=== PATIENT | male | born 1985 | race Caucasian/White ===

== ENCOUNTER 2016-08-18 02:49 | Emergency (ER) | payer OTHER ==
[~2016-08-18] VITALS: Ht 182.9 cm; Wt 95.3 kg
--- NOTE | 2016-08-18 03:24 | ED GI/GU/ABDOMINAL COMPLAINT ---
History of Present Illness General Chief Complaint: Abdominal Pain/Flank Pain Stated Complaint: "IT'S MY GALLBLADDER" Source: patient Exam Limitations: no limitations Vital Signs & Intake/Output Vital Signs & Intake/Output Vital Signs Date Time Temp Pulse Resp B/P Pulse O2 O2 Flow FiO2 Ox Delivery Rate 08/18 0422 98.5 70 18 144/69 98 08/18 0254 97.0 75 18 157/87 99 Allergies Coded Allergies: No Known Allergies (08/18/16) Reconcile Medications Ondansetron (Zofran Odt) 4 MG TAB.RAPDIS 1 TAB PO Q6 PRN NAUSEA Triage Note: PT C/O SUDDEN ONSET OF RUQ ABDOMINAL PAIN. PT STATES "MY GALLBLADDER IS HURTING" PT REPORTS INITIAL PAIN /10. REPORTS TAKIN A PERCOCET AND PAIN DECREASING TO 4/10. PT DENIES N/V/D, FEVER AND CHILLS Triage Nurses Notes Reviewed? yes Onset: Abrupt Duration: SEVERAL HOURS Timing: single episode today Quality/Severity: mild, moderate Location: right upper quadrant Radiation: back Activities at Onset: sleep, ATE AT 7 PM Prior Abdominal Problems: similar symptoms No Modifying Factors: none Associated Symptoms: abdominal pain, nausea/vomiting HPI: This a 30-year-old male with history of known biliary colic presents to the ER with chief complaint of right upper quadrant abdominal pain that woke him up at 140 from sleep. He dinner around 7:00 and had a raspberry Antonella's retort after dinner. He states he has a history of similar symptoms which she knew was his gallbladder. Positive nausea but no vomiting. No fever or chills. No diarrhea. Pain got better after taking an Percocet and states that it is much better at this time. Mild nausea still. He states that when he has gallbladder problems he was seen at that time had no insurance and therefore followed up with a surgeon to have cholecystectomy. Time he is change in his diet and in general doesn't have any pain after eating until tonight. Past History Travel History Traveled to [place] past 21 day No Medical History Any Pertinent Medical History? see below for history Neurological: NONE EENT: NONE Cardiovascular: NONE Respiratory: NONE Gastrointestinal: NONE Hepatic: NONE Renal: NONE Psychiatric: NONE Endocrine: NONE Surgical History Surgical History: none Psychosocial History What is your primary language Kazakh Tobacco Use: Never used Family History Hx Contributory? No Review of Systems Review of Systems Constitutional: Denies: chills, fever. EENTM: Reports: no symptoms. Respiratory: Denies: cough, short of breath. Cardiovascular: Denies: chest pain, edema. GI: Reports: abdominal pain, nausea. Denies: vomiting. Genitourinary: Reports: no symptoms. Musculoskeletal: Reports: back pain. Skin: Reports: no symptoms. Neurological/Psychological: Reports: no symptoms. Hematologic/Endocrine: Denies: bruising, bleeding, polyuria, polydipsia. Immunologic/Allergic: Denies: splenectomy. All Other Systems: Reviewed and Negative Physical Exam Physical Exam General Appearance: well developed/nourished, alert, awake, mild distress Head: atraumatic, normal appearance Eyes: Bilateral: EOMI. Ears, Nose, Throat, Mouth: hearing grossly normal, moist mucous membrane Neck: normal inspection, supple, full range of motion Respiratory: normal breath sounds, chest non-tender, no respiratory distress Cardiovascular: regular rate/rhythm Peripheral Pulses: 2+ radial (R), 2+ radial (L) Gastrointestinal: normal bowel sounds, soft, tenderness (RUQ), NEGATIVE DALE'S Back: normal inspection Extremities: normal range of motion Neurologic/Psych: no motor/sensory deficits, awake, alert, normal gait Skin: intact, normal color, warm/dry Core Measures ACS in differential dx? No Severe Sepsis Present: No Septic Shock Present: No Progress Differential Diagnosis: biliary colic, cholecystitis, GERD, pancreatitis, peptic ulcer disease Plan of Care: Orders Procedure Date/time Status LIPASE 08/18 0323 Complete ETHANOL 08/18 0323 Complete COMPREHENSIVE METABOLIC PANEL 08/18 0323 Complete CBC WITHOUT DIFFERENTIAL 08/18 322 Complete AMYLASE 08/18 0323 Complete Laboratory Tests 08/18/16 0324: Anion Gap 17 H, Estimated GFR > 60, BUN/Creatinine Ratio 20.0, Glucose 95, Calcium 9.8, Total Bilirubin 1.1, AST 17, ALT 33, Alkaline Phosphatase 53, Total Protein 8.1, Albumin 4.9, Globulin 3.2, Albumin/Globulin Ratio 1.5, Amylase 60, Lipase 117, CBC w Diff NO MAN DIFF REQ, RBC 5.66, MCV 86.2, MCH 29.0, RDW 13.5, MPV 8.7, Gran % 42.5, Lymphocytes % 47.9, Monocytes % 6.8, Eosinophils % 2.4, Basophils % 0.4, Absolute Granulocytes 2.8, Absolute Lymphocytes 3.1, Absolute Monocytes 0.4, Absolute Eosinophils 0.2, Absolute Basophils 0, PUBS MCHC 33.6, Serum Alcohol < 10.0 08/18/16 0323: Urine Color Cancelled, Urine Clarity Cancelled, Urine pH Cancelled, Ur Specific [place] Cancelled, Urine Protein Cancelled, Urine Ketones Cancelled, Urine Nitrite Cancelled, Urine Bilirubin Cancelled, Urine Urobilinogen Cancelled, Ur Leukocyte Esterase Cancelled, Ur Microscopic Cancelled, Urine Hemoglobin Cancelled, Urine Glucose Cancelled PATIENT IMRPOVED AFTER ZOFRAN. REFUSED TORADOL. LABS WNL. WILL FOLLOW UP WITH OUTPATIENT ULTRASOUND AND WITH SURGICAL REFERRAL. (VICTORINO CERRATO,[place]) Initial ED EKG: none Departure Departure Time of Disposition: 403 Disposition: HOME OR SELF CARE Condition: Stable Clinical Impression Primary Impression: Biliary colic Referrals: VALERIE CERRATO,CLAUDINE UNDERWOOD MD,DENISSE Buenrostro Additional Instructions: Please follow up with outpatient ultrasound. Take Zofran as needed for nausea. Take Tylenol or Motrin as needed for pain. Please follow up with a surgical referral listed. Return to the ER for any changing or worsening symptoms. Departure Forms: Customer Survey General Discharge Information Prescriptions: Current Visit Scripts Ondansetron (Zofran Odt) 1 TAB PO Q6 PRN NAUSEA #10 TAB
[2016-08-18 03:31] LABS: ABSOLUTE BASOPHIL COUNT 0 /CUMM (0.0-0.2); ABSOLUTE EOSINOPHIL COUNT 0.2 /CUMM (0.0-0.7); ABSOLUTE GRANULOCYTE CT 2.8 /CUMM (1.4-6.5); ABSOLUTE LYMPH COUNT 3.1 /CUMM (1.2-3.4); ABSOLUTE MONOCYTE COUNT 0.4 /CUMM (0.10-0.60); BASOPHIL % 0.4 % (0.0-2.0); EOSINOPHIL % 2.4 % (0-5); GRANULOCYTE % 42.5 % (42.2-75.2); HEMATOCRIT 48.8 % (42-52); MEAN CORPUSCULAR HGB CONC 33.6 G/DL (33.0-37.0); MEAN CORPUSCULAR VOLUME 86.2 FL (80.0-94.0); MEAN PLATELET VOLUME 8.7 FL (7.4-10.4); PLATELET COUNT 228 /CUMM (130-400); RBC DISTRIBUTION WIDTH 13.5 % (11.5-14.5); RED BLOOD CELL CT 5.66 /CUMM (4.70-6.10); WHITE BLOOD CELL COUNT 6.5 /CUMM (4.8-10.8)
[2016-08-18] MEDS ORDERED: ZOFRAN ODT4 M1 PO (04:05)
[2016-08-18 04:22] VITALS: BP 144/69
== END 2016-08-18 04:23 ==
LOC: ERH 02:49
PROVIDERS: Emergency Medicine
DX: K80.50 Calculus of bile duct without cholangitis or cholecystitis without obstruction (principal)
CPT/HCPCS: G0480; J1885; J3101

== ENCOUNTER 2016-08-23 07:01 | Observation (INO) | payer OTHER ==
[~2016-08-23] VITALS: Ht 182.9 cm; Wt 90.7 kg
[~2016-08-23 07:01] MED LIST: ZOFRAN ODT4 M1 PO
--- NOTE | 2016-08-23 07:06 | NUR ---
PT STTAES THAT HE WAS SEEN FRIDAY PM FOR RUQ PAIN THAT WRAPS INTO HIS BACK, STATES THATHE HAD OUT PT US YESTERDAY AND WAS GIVEN NUMBERS OF DRS TO FOLLOW UP WITH, PT HAS NOT CALLED YEST AND STATES THAT SINCE 429 THIS AM PAIN HAS BEEN 10/10, POSITIVE NAUSEA.
--- NOTE | 2016-08-23 07:21 | ED GI/GU/ABDOMINAL COMPLAINT ---
History of Present Illness General Chief Complaint: Abdominal Pain/Flank Pain Stated Complaint: ? GALLBLADDER,ABD PAIN HX OF SAME Source: patient, old records Exam Limitations: no limitations Vital Signs & Intake/Output Vital Signs & Intake/Output Vital Signs Date Time Temp Pulse Resp B/P B/P Pulse O2 O2 Flow FiO2 Mean Ox Delivery Rate 08/23 0704 97.2 60 18 138/88 99 Room Air Allergies Coded Allergies: No Known Allergies (08/18/16) Reconcile Medications Docusate Sodium 100 MG CAPSULE 100 MG PO BID PRN CONSTIPATION STOOL SOFTENER AVAILABLE OVER THE COUNTER Oxycodone HCl/Acetaminophen (Percocet 5-325 MG Tablet) 5 MG-325 MG TABLET 1-2 TAB PO Q4-6 PRN PRN PAIN CONTROL TAKE DIRECTED FOR PAIN CONTROL. DO NOT COMBINE WITH TYLENOL. Triage Note: PT STTAES THAT HE WAS SEEN FRIDAY PM FOR RUQ PAIN THAT WRAPS INTO HIS BACK, STATES THATHE HAD OUT PT US YESTERDAY AND WAS GIVEN NUMBERS OF DRS TO FOLLOW UP WITH, PT HAS NOT CALLED YEST AND STATES THAT SINCE 429 THIS AM PAIN HAS BEEN 10/10, POSITIVE NAUSEA. Triage Nurses Notes Reviewed? yes Onset: Abrupt Duration: hour(s): (several) Timing: multiple episodes today Quality/Severity: cramping, moderate, sharpness, vomiting Location: right upper quadrant Radiation: back Activities at Onset: sleep No Modifying Factors: none Associated Symptoms: abdominal pain, nausea/vomiting HPI: 30 year old male presents with severe RUQ pain radiating to the [facility] which woke the patient up from sleep several hours ago. He last ate barbecue chicken and beans at 7 pm yesterday. He was seen here on the weekend and diagnosed with cholelithiasis. History of same. This week he had an outpatient ultrasound which confirmed the diagnosis. He was going to follow up with surgery outpatient but came here with worsening pain today. Multiple episodes of nausea and vomiting. Past History Travel History Traveled to [place] past 21 day No Medical History Any Pertinent Medical History? 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 No Review of Systems Review of Systems Constitutional: Denies: chills, fever. EENTM: Reports: no symptoms. Respiratory: Denies: cough, short of breath. Cardiovascular: Denies: chest pain, orthopena. GI: Reports: abdominal pain, nausea, vomiting. Genitourinary: Denies: discharge, dysuria. Musculoskeletal: Reports: no symptoms. Skin: Reports: no symptoms. Neurological/Psychological: Reports: no symptoms. Hematologic/Endocrine: Denies: bruising, bleeding, polyuria, polydipsia. Immunologic/Allergic: Denies: splenectomy. All Other Systems: Reviewed and Negative Physical Exam Physical Exam General Appearance: well developed/nourished, alert, awake Head: atraumatic, normal appearance Eyes: Bilateral: normal appearance, PERRL, EOMI. Ears, Nose, Throat, Mouth: hearing grossly normal, moist mucous membrane Neck: normal inspection, supple, full range of motion Respiratory: normal breath sounds, chest non-tender, no respiratory distress Cardiovascular: regular rate/rhythm Gastrointestinal: soft, tenderness (RUQ), POSITIVE DALE'S EXAM Extremities: normal range of motion Neurologic/Psych: no motor/sensory deficits, awake, alert, oriented x 3 Skin: intact Core Measures ACS in differential dx? No Severe Sepsis Present: No Septic Shock Present: No Progress Differential Diagnosis: biliary colic, cholecystitis Plan of Care: Orders Procedure Date/time Status Nothing by Mouth 08/[address] in observation 08/23 0939 Active URINALYSIS 08/23 0836 Complete Add-on Test (ER Only) 08/23 0830 Active TYPE & SCREEN (NOT X-MATCH) 08/23 0744 Active PARTIAL THROMBOPLASTIN TIME 08/23 0733 Complete PROTHROMBIN TIME 08/23 0733 Complete LIPASE 08/23 0733 Complete COMPREHENSIVE METABOLIC PANEL 08/23 0733 Complete CBC WITHOUT DIFFERENTIAL 08/23 0733 Complete Current Medications Sig/Cristian Start time Last Medication Dose Stop Time Status Admin Sodium Chloride 1,000 ML ONCE ONE 08/23 0830 AC 08/23 (Normal Saline 0.9%) 08/23 1629 0840 Laboratory Tests 08/23/16 0838: Urinalysis HEAVY H, Urine Color YEL, Urine Clarity HAZY H, Urine pH 6.5, Ur Specific [place] 1.025, Urine Protein TRACE H, Urine Ketones 40 H, Urine Nitrite NEG, Urine Bilirubin NEG, Urine Urobilinogen 0.2, Ur Leukocyte Esterase NEG, Ur Microscopic SEDIMENT EXAMINED, Urine RBC RARE, Urine WBC RARE, Ur Epithelial Cells FEW, Urine Bacteria FEW H, Urine Mucus FEW, Urine Hemoglobin NEG, Urine Glucose NEG 08/23/16 0744: Anion Gap 17 H, Estimated GFR > 60, BUN/Creatinine Ratio 21.1, Glucose 116 H, Calcium 10.0, Total Bilirubin 1.4 H, AST 16 L, ALT 31, Alkaline Phosphatase 56 , Total Protein 7.9, Albumin 4.6, Globulin 3.3, Albumin/Globulin Ratio 1.4, Lipase 92, PT 11.3, INR 1.08, APTT 34, CBC w Diff NO MAN DIFF REQ, RBC 5.73, MCV 85.7, MCH 28.9, RDW 13.4, MPV 8.9, Gran % 52.7, Lymphocytes % 37.6, Monocytes % 6.6, Eosinophils % 2.1, Basophils % 1.0, Absolute Granulocytes 3.1, Absolute Lymphocytes 2.2, Absolute Monocytes 0.4, Absolute Eosinophils 0.1, Absolute Basophils 0.1, PUBS MCHC 33.7 abdominal exam consistent with acute cholecystitis. D/W dr. Jackson. Surgical PA paged. Patient seen by Jose. Patient to be placed in surgical observation. 8:22 AM SURGERY PAGED. (VICTORINO CERRATO,AL[place]ER) Initial ED EKG: none Departure Departure Time of Disposition: 937 Disposition: STILL A PATIENT Condition: Stable Clinical Impression Primary Impression: Cholelithiasis Referrals: PATIENT HAS NO PRIMARY CARE DR (PCP/Family) Departure Forms: Customer Survey General Discharge Information Prescriptions: Current Visit Scripts Docusate Sodium 100 MG PO BID PRN CONSTIPATION 10 Days STOOL SOFTENER AVAILABLE OVER THE COUNTER Oxycodone HCl/Acetaminophen (Percocet 5-325 MG Tablet) 1-2 TAB PO Q4-6 PRN PRN PAIN CONTROL #30 TAB TAKE DIRECTED FOR PAIN CONTROL. DO NOT COMBINE WITH TYLENOL. Admission Note Documentation of Exam: Documentation of any treatments & extenuating circumstances including Concerns Regarding Discharge (functional status, medication knowledge or non-compliance, living conditions, etc.) that warrant an admission rather than observation: Observation Note Spoke With: KJ CERRATO,DENISSE Buenrostro Physician Advisor Notified: BRISEIDA FRANCISCO DO Place Patient In: Non-ED OBS Care Area Rationale for Observation: My rational for observation is as follows [IVF, NPO, CHOLECYSTECTOMY]. Critical Care Note Critical Care Note Critical Care Time: 30-74 min
--- NOTE | 2016-08-23 07:21 | NUR ---
PT AMB TO ROOM 1, AWAITING EVAL.
--- NOTE | 2016-08-23 07:28 | NUR ---
DR GLEASON IN FOR GABIAL
--- NOTE | 2016-08-23 07:49 | NUR ---
BLOOD DRAWN AND SENT TO THE LAB (SST,LAV,ANTONY,BLUE,PINK)
[2016-08-23 07:58] LABS: ABSOLUTE BASOPHIL COUNT 0.1 /CUMM (0.0-0.2); ABSOLUTE EOSINOPHIL COUNT 0.1 /CUMM (0.0-0.7); ABSOLUTE GRANULOCYTE CT 3.1 /CUMM (1.4-6.5); ABSOLUTE LYMPH COUNT 2.2 /CUMM (1.2-3.4); ABSOLUTE MONOCYTE COUNT 0.4 /CUMM (0.10-0.60); EOSINOPHIL % 2.1 % (0-5); GRANULOCYTE % 52.7 % (42.2-75.2); HEMATOCRIT 49.1 % (42-52); MEAN CORPUSCULAR HGB 28.9 PG (27.0-31.0); MEAN CORPUSCULAR HGB CONC 33.7 G/DL (33.0-37.0); MEAN CORPUSCULAR VOLUME 85.7 FL (80.0-94.0); MEAN PLATELET VOLUME 8.9 FL (7.4-10.4); PLATELET COUNT 188 /CUMM (130-400); RBC DISTRIBUTION WIDTH 13.4 % (11.5-14.5); RED BLOOD CELL CT 5.73 /CUMM (4.70-6.10); WHITE BLOOD CELL COUNT 5.8 /CUMM (4.8-10.8)
[2016-08-23 08:23] LABS: PT 11.3 SEC (9.4-12.5); PTT 34 SEC (25-37)
--- NOTE | 2016-08-23 08:40 | NUR ---
URINE TRIO SENT TO THE LAB
--- NOTE | 2016-08-23 08:54 | NUR ---
TYPE AND SCREEN HEMOLYZED PER BLOOD BANK. TYPE AND SCREEN RE-SENT. SURGICAL PA AT BEDSIDE.
--- NOTE | 2016-08-23 10:07 | NUR ---
DR UNDERWOOD AT BEDSIDE.
--- NOTE | 2016-08-23 10:18 | Admission Core Measures ---
Admission Lab Results I reviewed the following labs: Laboratory Tests 08/23 08/23 0838 0703 Chemistry Sodium (137 - 145 mmol/L) 144 Potassium (3.5 - 5.1 mmol/L) 3.8 Chloride (98 - 107 mmol/L) 100 Carbon Dioxide (22 - 30 mmol/L) 26 Anion Gap (5 - 16) 17 H BUN (9 - 20 mg/dL) 19 Creatinine (0.7 - 1.2 mg/dL) 0.9 Estimated GFR (>60 ml/min) > 60 BUN/Creatinine Ratio (7 - 25 %) 21.1 Glucose (65 - 99 mg/dL) 116 H Calcium (8.4 - 10.2 mg/dL) 10.0 Total Bilirubin (0.2 - 1.3 mg/dL) 1.4 H AST (17 - 59 U/L) 16 L ALT (21 - 72 U/L) 31 Alkaline Phosphatase (< 127 U/L) 56 Total Protein (6.3 - 8.2 g/dL) 7.9 Albumin (3.5 - 5.0 g/dL) 4.6 Globulin (1.9 - 4.2 gm/dL) 3.3 Albumin/Globulin Ratio (1.1 - 2.2 %) 1.4 Lipase (23 - 300 U/L) 92 Coagulation PT (9.4 - 12.5 SEC) 11.3 INR (0.90 - 1.17) 1.08 APTT (25 - 37 SEC) 34 Hematology CBC w Diff NO MAN DIFF REQ WBC (4.8 - 10.8 /CUMM) 5.8 RBC (4.70 - 6.10 /CUMM) 5.73 Hgb (14.0 - 18.0 G/DL) 16.5 Hct (42 - 52 %) 49.1 MCV (80.0 - 94.0 FL) 85.7 MCH (27.0 - 31.0 PG) 28.9 RDW (11.5 - 14.5 %) 13.4 Plt Count (130 - 400 /CUMM) 188 MPV (7.4 - 10.4 FL) 8.9 Gran % (42.2 - 75.2 %) 52.7 Lymphocytes % (20.5 - 51.1 %) 37.6 Monocytes % (1.7 - 9.3 %) 6.6 Eosinophils % (0 - 5 %) 2.1 Basophils % (0.0 - 2.0 %) 1.0 Absolute Granulocytes (1.4 - 6.5 /CUMM) 3.1 Absolute Lymphocytes (1.2 - 3.4 /CUMM) 2.2 Absolute Monocytes (0.10 - 0.60 /CUMM) 0.4 Absolute Eosinophils (0.0 - 0.7 /CUMM) 0.1 Absolute Basophils (0.0 - 0.2 /CUMM) 0.1 PUBS MCHC (33.0 - 37.0 G/DL) 33.7 Urines Urinalysis HEAVY H Urine Color (YEL,AMB,STR) YEL Urine Clarity (CLEAR) HAZY H Urine pH (5.0 - 8.0) 6.5 Ur Specific [place] (1.001 - 1.035) 1.025 Urine Protein (NEG,<30 MG/DL) TRACE H Urine Ketones (NEG) 40 H Urine Nitrite (NEG) NEG Urine Bilirubin (NEG) NEG Urine Urobilinogen (0.1 - 1.0 EU/dl) 0.2 Ur Leukocyte Esterase (NEG) NEG Ur Microscopic SEDIMENT EXAMINED Urine RBC (0 - 5 /HPF) RARE Urine WBC (0 - 2 /HPF) RARE Ur Epithelial Cells (NONE,FEW) FEW Urine Bacteria (NEG/NONE) FEW H Urine Mucus (FEW,NONE) FEW Urine Hemoglobin (NEG) NEG Urine Glucose (N MG/DL) NEG Admission Meds I reviewed the following Meds: Current Medications Sig/Cristian Start time Last Medication Dose Stop Time Status Admin Dextrose/Sodium 1,000 ML .[id number] 08/23 1015 UNVr Chloride (D5-Normal Saline) Heparin Sodium 5,000 UNIT Q8 08/23 1400 UNVr (Porcine) Ondansetron HCl 4 MG Q8P PRN 08/23 1015 UNVr (Zofran) Sodium Chloride 1,000 ML ONCE ONE 08/23 0830 AC 08/23 (Normal Saline 0.9%) 08/23 1629 0840 Acute Coronary Syndrome Inclusion Criteria ACS Diagnosis No Inpatient Core Measures LDL Reminder: If No, please order W/I first 24hr of stay Congestive Heart Failure Inclusion Criteria CHF Diagnosis No Cerebrovascular accident Inclusion Criteria CVA/TIA Diagnosis No Inpatient Core Measures Bedside Swallow Eval Reminder: If BSE failed, place ST order Antithrombotic Reminder: Order Antithrombotic Medication by end of day 2 Antithrombotic Reminder: Document Reason Antithrombotic Not ordered by end of day 2 AFIB/Flutter Reminder: If Present, add to problem list AFIB/Flutter Reminder: Order Anticoag Medication for pts with AFIB/Flutter Atherosclerosis Reminder: If Present, add to problem list LDL Reminder: If No, please order W/I first 24hr of stay PT Order Reminder: If No, please order Venous thromboembolism Inpatient Core Measures VTE Risk Factors: No Risk Factors [facility] prophylaxis d/t No contraindications No VTE Pharm Prophylaxis d/t No contraindications Inclusion Criteria - Per Current guidelines, there needs to be overlap - treatment for the first 5 days of Warfarin therapy. - Parenteral Anticoagulation (IV or SC) needs to be - given along with Warfarin therapy. VTE Diagnosis No VTE Type NONE VTE Confirmed by (Test) NONE Problem List As ranked by this Provider includes Assessment & Plan 1. Cholelithiasis 2. Biliary colic HOME MEDS Home Med List Ondansetron (Zofran Odt) 4 MG TAB.RAPDIS 1 TAB PO Q6 PRN NAUSEA
--- NOTE | 2016-08-23 10:28 | History & Physical Pre-Op ---
FRANKIE BONILLA 08/23/16 1018: General Information and HPI MD Statement: I have seen and personally examined SALUD VASQUEZ and documented this H&P. The patient is a 30 year old M who presented with a patient stated chief complaint of [abdominal pain]. Source of Information: patient Exam Limitations: no limitations History of Present Illness: Mr. Vasquez is a 30-year-old male with no significant past medical history presents with pain out of 10 sharp right upper quadrant abdominal pain that started after eating barbecue chicken yesterday. He was seen on Friday for similar abdominal complaints however he was discharged. This week he had a follow-up ultrasound which revealed cholelithiasis without evidence of cholecystitis. He states that he was seen at [facility] a couple of years ago with similar symptoms and was discharged and was told to follow-up for his gallbladder at that time but did not. He denies chest pain or shortness of breath at this time no recent history of fever or chills. He has had a couple episodes of vomiting since the onset of this pain. No recent history of change in bladder or bowel habits. 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 ASSISTANT/Reproductive: NONE Surgical History Pertinent Surgical History: Michele ANIAS PLACEMENT FOR SPINAL SCOLIOSIS 12 YEARS AGO Past Family/Social History Psychosocial History ETOH Use: denies use Illicit Drug Use: denies illicit drug use Exam & Diagnostic Data Last 24 Hrs of Vital Signs/I&O Vital Signs Date Time Temp Pulse Resp B/P B/P Pulse O2 O2 Flow FiO2 Mean Ox Delivery Rate 08/23 0948 98.0 63 18 109/70 97 Room Air 08/23 0704 97.2 60 18 138/88 99 Room Air Intake & Output 08/23 1600 08/23 0800 08/23 0000 Intake Total 1000 Output Total Balance 1000 Intake, IV 1000 Patient 200 lb Weight Physical Exam General Appearance Alert, Oriented X3, Mild Distress HEENT PERRLA Neck No JVD Cardiovascular Regular Rate Lungs Clear to Auscultation Abdomen Normal Bowel Sounds, RIGHT UPPER QUADRANT TENDERNESS REVEALING A [place] SIGN TO DEEP PALPATION. nO EVIDENCE OF PERITONITIS Neurological Normal Speech, Strength at 5/5 X4 Ext Extremities No Edema, Normal Pulses Last 24 Hrs of Labs/Zoran: Laboratory Tests 08/23/16 0838: Urinalysis HEAVY H, Urine Color YEL, Urine Clarity HAZY H, Urine pH 6.5, Ur Specific [place] 1.025, Urine Protein TRACE H, Urine Ketones 40 H, Urine Nitrite NEG, Urine Bilirubin NEG, Urine Urobilinogen 0.2, Ur Leukocyte Esterase NEG, Ur Microscopic SEDIMENT EXAMINED, Urine RBC RARE, Urine WBC RARE, Ur Epithelial Cells FEW, Urine Bacteria FEW H, Urine Mucus FEW, Urine Hemoglobin NEG, Urine Glucose NEG 08/23/16 0744: Anion Gap 17 H, Estimated GFR > 60, BUN/Creatinine Ratio 21.1, Glucose 116 H, Calcium 10.0, Total Bilirubin 1.4 H, AST 16 L, ALT 31, Alkaline Phosphatase 56 , Total Protein 7.9, Albumin 4.6, Globulin 3.3, Albumin/Globulin Ratio 1.4, Lipase 92, PT 11.3, INR 1.08, APTT 34, CBC w Diff NO MAN DIFF REQ, RBC 5.73, MCV 85.7, MCH 28.9, RDW 13.4, MPV 8.9, Gran % 52.7, Lymphocytes % 37.6, Monocytes % 6.6, Eosinophils % 2.1, Basophils % 1.0, Absolute Granulocytes 3.1, Absolute Lymphocytes 2.2, Absolute Monocytes 0.4, Absolute Eosinophils 0.1, Absolute Basophils 0.1, PUBS MCHC 33.7 Diagnostic Data Other Results SERVICE DATE: 08/21/16 EXAM TYPE: US - US-LIMITED ABDOMEN EXAMINATION: ABDOMINAL ULTRASOUND LIMITED CLINICAL INFORMATION: Right upper quadrant pain. COMPARISON: None. TECHNIQUE: Real-time imaging of the right upper quadrant abdominal viscera. FINDINGS: PANCREAS: The visualized pancreatic head and body are normal in appearance. The remainder of the pancreas is obscured from visualization by the overlying bowel gas. LIVER: The liver is of normal size and diffuse increased echogenicity without focal lesions nor intrahepatic biliary ductal dilation. GALLBLADDER: There are calculi within the gallbladder lumen. There is no wall thickening or pericholecystic fluid. COMMON BILE DUCT: Normal in caliber measuring 0.4 cm in diameter. RIGHT KIDNEY: Normal. No hydronephrosis. No renal calculi or focal parenchymal lesions. The kidney measures 10.4 cm in maximum dimension. FREE FLUID: None. IMPRESSION: Liver of diffuse increased echogenicity without focal lesions. The appearance is nonspecific, but consistent with fatty infiltration. Cholelithiasis without evidence of cholecystitis. DICTATED BY: SALUD ZULETA MD DATE/TIME DICTATED:08/21/161037 BELT LOOP MACHINE OPERATOR:ADAN DATE/TIME TRANSCRIBED:08/21/161037 Assessment/Plan Assessment/Plan: Mr. Vasquez is 30-year-old male who presents with 10 out of 10 right upper quadrant abdominal pain that started early this morning. He has a known history of biliary colic secondary to cholelithiasis. This case was discussed with Dr. Jackson and he felt as though since the patient was here with this pain it would be prudent to remove his gallbladder at this time. Plan Keep nothing by mouth now Titrate pain medication Place in observation under Dr. Jackson's care Plan for laparoscopic cholecystectomy this afternoon As Ranked By This Provider Problem List: 1. Biliary colic 2. Cholelithiasis DENISSE JACKSON MD 08/23/16 1034: Attending MD Review Statement Attending Statement Attending MD Statement: examined this patient, discuss w/resident/PA/VERIFICATION LEAD, reviewed images Attending Assessment/Plan: 30 yo otherwise healthy male presents with recurrent biliary colic symptoms prompting two visits to ER in one week. Recommend laparoscopic cholecystectomy today when OR available. He is informed of the risks of surgery including but not limited to bleeding, infection, conversion to open, post cholecystectomy diarrhea and bile duct injury. He ageees.
--- NOTE | 2016-08-23 10:35 | NUR ---
BED ASSIGNMENT [id number]
--- NOTE | 2016-08-23 10:58 | NUR ---
ATTEMPTED TO CALL REPORT, NURSE WILL CALL BACK.
--- NOTE | 2016-08-23 11:13 | NUR ---
REPORT TO CHERI MARTINEZ ON 2NA. TRANSPORT CALLED.
--- NOTE | 2016-08-23 11:27 | NUR ---
PT TO FLOOR VIA STRETCHER. ALL PAPERWORK AND BELONGINGS SENT WITH PT. CLINICAL STATUS UNCHANGED.
--- NOTE | 2016-08-23 11:30 | NUR ---
PT ADMITTED FROM ER WITH DX: CHOLECYSTITIS, PT AXO, C/O ABD PAIN 05/14, PT NPO FOR OR LATER TODAY, IVF INFUSING WITHOUT DIFFICULTY, PT ORIENTED TO ROOM, CALL LIGHT, AND PLAN OF CARE, PT VERBALIZES UNDERSTANDING
[2016-08-23 11:39] VITALS: BP 120/80
[2016-08-23 14:06] VITALS: BP 120/80
--- NOTE | 2016-08-23 16:20 | NUR ---
PT DOWN TO OR AT THIS TIME VIA STRETCHER. JEWERLY REMOVED, PT VOIDED INKER MACHINE TO OR. VSS. ALERT/ORIENTED X3. DENIES ANY PAIN. WILL CONTINUE TO MONITOR.
[2016-08-23] MEDS ORDERED: PERCOCET 5-3251 EACH PO (16:34)
[2016-08-23] MEDS ORDERED: DOCUSATE SODIU100 M3 PO (16:34)
--- NOTE | 2016-08-23 16:39 | Patient Discharge Instructions ---
Discharge Instructions General Discharge Information You were seen/treated for: GALLSTONES, BILIARY COLIC You had these procedures: LAPAROSCOPIC CHOLECYSTECTOMY (08/23/16) Watch for these problems: FEVER>101.3, INCREASED PAIN, REDNESS/SWELLING/DRAINAGE No bath, but you may shower: Yes Other wound care: LEAVE WHITE STERI STRIPS IN PLACE. KEEP INCISIONS CLEAN & DRY. Diet Continue normal diet: No Recommended Diet: Low Fat Activity Full Activity/No Limits: No Activity Self Limited: Yes Pounds, do NOT lift more than: 10 Other activity limits: NO HEAVY LIFTING. NO STRENUOUS ACTIVITY. Acute Coronary Syndrome Inclusion Criteria At DC or during hospital stay patient has or had the following: ACS DIAGNOSIS No Discharge Core Measures Meds if any: Prescribed or Continued at Discharge Meds if any: NOT Prescribed or Continued at Discharge Congestive Heart Failure Inclusion Criteria At DC or during hospital stay patient has or had the following: CHF DIAGNOSIS No Discharge Core Measures Meds if any: Prescribed or Continued at Discharge Meds if any: NOT Prescribed or Continued at Discharge Cerebrovascular accident Inclusion Criteria At DC or during hospital stay patient has or had the following: CVA/TIA Diagnosis No Discharge Core Measures Meds if any: Prescribed or Continued at Discharge Meds if any: NOT Prescribed or Continued at Discharge Venous thromboembolism Inclusion Criteria VTE Diagnosis No VTE Type NONE VTE Confirmed by (Test) NONE Discharge Core Measures - Per Current guidelines, there needs to be overlap - treatment for the first 5 days of Warfarin therapy. - If discharged on Warfarin prior to 5 days of - overlap therapy, the patient will need to be - assessed for post discharge needs including - *Post discharge parental anticoagulation - *Warfarin and/or parental anticoagulation education - *Follow up date to check INR post discharge At least 5 days overlap therapy as Inpatient No Meds if any: Prescribed or Continued at Discharge Note: Overlap Therapy is Warfarin and Anticoagulant Meds if any: NOT Prescribed or Continued at Discharge
--- NOTE | 2016-08-23 17:57 | Operative Report ---
Operative/Inv Procedure Report Surgery Date: 08/23/16 Name of Procedure: Laparoscopic cholecystectomy Pre-Operative Diagnosis: Acute cholecystitis Post-Operative Diagnosis: Same Estimated Blood Loss: less than 50ml Surgeon/Small Business Banking Officer: KJ CERRATO,DENISSE Buenrostro/Natalia OQUENDO Anesthesia: general endotracheal tube Drains: None Specimens: Gallbladder Operative Indication: See H&P Operative/Procedure Note Note: After informed consent patient is brought to the operating room and laid supine. General anesthesia was obtained and her abdomen was prepped and draped. The skin above the umbilicus infiltrated with local anesthesia and a curvilinear incision made sharply. We came down through the subcutaneous tissues bluntly and grasped the fascia with [place]'s. There is a tiny umbilical hernia which was dissected free however the hole was too small to place a port through it. A fasciotomy was created sharply and stay sutures placed. The peritoneum was entered sharply and a blunt Kirk port was placed. Pneumoperitoneum was achieved. 3, 5 mm ports were placed in the epigastrium and right upper quadrant after local anesthesia was instilled and under direct vision the camera. he's placed in reverse Trendelenburg and rotated towards the left. The gallbladder is identified. The dome was adherent densely to the liver.. There were dense adhesions to the dome taken down with cautery. It was grasped at the dome and retracted towards the head. Infundibulum was then grasped. Adhesions to the undersurface were taken down with blunt and cautery dissection. We dissected both sides the triangle Calot peritoneal tissue with cautery. The artery was medial and its normal anatomic position. It was cauterized medially to allow it to be mobilized away from the duct. We encountered some hemorrhage which was controlled with cautery. [place] was cleared of areolar tissue with cautery. The arteries and duct were doubly ligated with clips. Gallbladder is removed from the fossa electrocautery. Towards the dome there was difficulty in dissection due to a triangular lobe of the liver attached to the gallbladder. We dissected it free with cautery. The gallbladder was placed in Endo Catch bag and cinched up. Right upper quadrant was and suction irrigated normal saline. Hemostasis achieved with cautery. The ports were then removed and the gallbladder delivered and passed off the field. The fascia was closed with 0 Vicryl suture. Skin incisions closed with 4-0 Vicryl. Steri-Strips and sterile dressing applied. Sponge and needle counts are correct.
--- NOTE | 2016-08-23 19:30 | NUR ---
PT ARRIVED BACK TO FLOOR VIA STRETCHER FROM PACU AT 193. PT HAS 4 BANDAIDS TO ABD, NO DRAINAGE NOTED. +BS, BOXED LUNCH ORDERED FOR PT. PT C/O PAIN 11/11 AT 1999, MEDICATED WITH SCHEDULED TORADOL. PT AWARE OF PAIN MEDS AVAILABLE IF NEEDED. VSS. WILL CONTINUE TO MONITOR.
[2016-08-23 19:39] VITALS: BP 110/70
--- NOTE | 2016-08-23 21:27 | PN- General Surgery ---
Subjective Subjective: POST-OP NOTE: Reports expected incisional discomfort, which he states is nothing compared to the pain he had pre-op from his gallstones. He is tolerating sips. No nausea. Not yet out of bed. Denies dizziness. No shortness of breath. Due to void later tonight. Objective Vital Signs and I&Os Vital Signs Date Time Temp Pulse Resp B/P B/P Pulse O2 O2 Flow FiO2 Mean Ox Delivery Rate 08/23 1939 98.2 60 18 110/70 99 Room Air 08/23 1406 98.2 70 20 120/80 97 08/23 1139 98.2 70 20 120/80 97 08/23 1113 98.2 60 20 112/72 98 Room Air 08/23 0948 98.0 63 18 109/70 97 Room Air 08/23 0704 97.2 60 18 138/88 99 Room Air Intake & Output 08/23 1600 08/23 0800 08/23 0000 08/22 1600 08/22 0800 08/22 0000 Intake Total 225 1000 Output Total 250 Balance -25 1000 Intake, IV 225 1000 Intake, Oral 0 Output, Urine 250 Patient 200 lb 200 lb Weight Physical Exam: General - alert & oriented x 3. comfortable. no acute distress. Lungs - clear bilaterally. no w/r/r. Cardiac - s1s2. reg. Abdomen - soft. dressings c/d/i. expected mony-incisional tenderness. no drains. Extremities - warm bilaterally. no c/c/e. calves soft and nontender b/l. Assessment/Plan Assessment/Plan This 30 year old male is POD#0 s/p lap cholecystectomy for acute cholecystitis advance diet as tolerated pain control as ordered hep sc - dvt ppx oob/ambulation due to void later tonight d/c tomorrow if tolerating food d/w Core Measures/Miscellaneous Venous Thromboembolism VTE Risk Factors: Surgery VTE Contraindications: No Contraindications VTE Diagnosis: No VTE Type: NONE VTE Confirmed by (Test): NONE Beta Jaison Is Beta Jaison a Home Med? No Antibiotics Is Patient on Antibiotics? No
[2016-08-23 23:22] VITALS: BP 112/80
[2016-08-24 07:11] VITALS: BP 110/68
--- NOTE | 2016-08-24 11:13 | PN- General Surgery ---
See Addendum Subjective Subjective: POD #1 s/p lap sima for biliary colic. Resting comfortably in bed. Tolerating a regular diet. Voiding spontaneously. Ambulating well. Objective Vital Signs and I&Os Vital Signs Date Time Temp Pulse Resp B/P B/P Pulse O2 O2 Flow FiO2 Mean Ox Delivery Rate 08/24 0711 98.2 64 16 110/68 96 Room Air 08/23 2322 98.1 60 18 112/80 95 Room Air 08/23 1939 98.2 60 18 110/70 99 Room Air 08/23 1406 98.2 70 20 120/80 97 08/23 1139 98.2 70 20 120/80 97 08/23 1113 98.2 60 20 112/72 98 Room Air Intake & Output 08/24 1600 08/24 0800 08/24 0000 08/23 1600 08/23 0800 08/23 0000 Intake Total 900 7091 261 7287 Output Total 700 250 Balance 900 580 -25 1000 Intake, IV 800 877 750 1197 Intake, Oral 100 480 0 Output, Urine 700 250 Patient 200 lb 200 lb Weight Physical Exam: Gen: AAox3 in NAD Cor: S1+S2+ Lungs: CTA lupe Abd: soft, NT, ND, +Bs x4. Incisional bandaids C/D/I> Ext: no edema or calf tenderness to lupe lower extremities. Current Medications: Current Medications Sig/Cristian Start time Last Medication Dose Route Stop Time Status Admin Acetaminophen 650 MG Q6P PRN 08/23 1630 AC PO Acetaminophen 1,000 MG .STK-MED ONE 08/23 1622 DC IV 08/23 1623 Dextrose/Sodium 1,000 ML Q10H 08/23 1630 DC 08/24 Chloride IV 0431 Dextrose/Sodium 1,000 ML .[id number] 08/23 1015 DC 08/23 Chloride IV 1020 Docusate Sodium 100 MG BID 08/23 2200 AC 08/24 PO 0830 Fentanyl Citrate 250 MCG .STK-MED ONE 08/23 1622 DC IM 08/23 1623 Heparin Sodium 5,000 UNIT Q8 08/24 0600 AC 08/24 (Porcine) SC 0549 Heparin Sodium 5,000 UNIT Q8 08/23 1400 DC 08/23 (Porcine) SC 1510 Hydromorphone HCl 2 MG .STK-MED ONE 08/23 1842 DC IM 08/23 1843 Hydromorphone HCl 2 MG .STK-MED ONE 08/23 1828 DC IM 08/23 1829 Hydromorphone HCl 2 MG .STK-MED ONE 08/23 1622 DC IM 08/23 1623 Ketorolac 30 MG Q6H 08/24 0200 AC 08/24 Tromethamine IV 0831 Ketorolac 30 MG Q6 08/23 1800 DC 08/23 Tromethamine IV 1951 Meperidine HCl 50 MG .STK-MED ONE 08/23 1824 DC IM 08/23 1825 Midazolam HCl 2 MG .STK-MED ONE 08/23 1622 DC IM 08/23 1623 Morphine Sulfate 2 MG Q4-6 PRN PRN 08/23 1630 AC IV Ondansetron HCl 4 MG Q6P PRN 08/23 1645 AC IV Ondansetron HCl 4 MG Q8P PRN 08/23 1015 DC IV Oxycodone/ 1 TAB Q4-6 PRN PRN 08/23 1630 AC 08/24 Acetaminophen PO 0550 Oxycodone/ 2 TAB Q4-6 PRN PRN 08/23 1630 AC Acetaminophen PO Sodium Chloride 1,000 ML ONCE ONE 08/23 0830 DC 08/23 IV 08/23 1629 0840 Results Last 48 Hours of Labs: Laboratory Tests 08/23 08/23 0838 0744 Chemistry Sodium (137 - 145 mmol/L) 144 Potassium (3.5 - 5.1 mmol/L) 3.8 Chloride (98 - 107 mmol/L) 100 Carbon Dioxide (22 - 30 mmol/L) 26 Anion Gap (5 - 16) 17 H BUN (9 - 20 mg/dL) 19 Creatinine (0.7 - 1.2 mg/dL) 0.9 Estimated GFR (>60 ml/min) > 60 BUN/Creatinine Ratio (7 - 25 %) 21.1 Glucose (65 - 99 mg/dL) 116 H Calcium (8.4 - 10.2 mg/dL) 10.0 Total Bilirubin (0.2 - 1.3 mg/dL) 1.4 H AST (17 - 59 U/L) 16 L ALT (21 - 72 U/L) 31 Alkaline Phosphatase (< 127 U/L) 56 Total Protein (6.3 - 8.2 g/dL) 7.9 Albumin (3.5 - 5.0 g/dL) 4.6 Globulin (1.9 - 4.2 gm/dL) 3.3 Albumin/Globulin Ratio (1.1 - 2.2 %) 1.4 Lipase (23 - 300 U/L) 92 Coagulation PT (9.4 - 12.5 SEC) 11.3 INR (0.90 - 1.17) 1.08 APTT (25 - 37 SEC) 34 Hematology CBC w Diff NO MAN DIFF REQ WBC (4.8 - 10.8 /CUMM) 5.8 RBC (4.70 - 6.10 /CUMM) 5.73 Hgb (14.0 - 18.0 G/DL) 16.5 Hct (42 - 52 %) 49.1 MCV (80.0 - 94.0 FL) 85.7 MCH (27.0 - 31.0 PG) 28.9 RDW (11.5 - 14.5 %) 13.4 Plt Count (130 - 400 /CUMM) 188 MPV (7.4 - 10.4 FL) 8.9 Gran % (42.2 - 75.2 %) 52.7 Lymphocytes % (20.5 - 51.1 %) 37.6 Monocytes % (1.7 - 9.3 %) 6.6 Eosinophils % (0 - 5 %) 2.1 Basophils % (0.0 - 2.0 %) 1.0 Absolute Granulocytes (1.4 - 6.5 /CUMM) 3.1 Absolute Lymphocytes (1.2 - 3.4 /CUMM) 2.2 Absolute Monocytes (0.10 - 0.60 /CUMM) 0.4 Absolute Eosinophils (0.0 - 0.7 /CUMM) 0.1 Absolute Basophils (0.0 - 0.2 /CUMM) 0.1 PUBS MCHC (33.0 - 37.0 G/DL) 33.7 Urines Urinalysis HEAVY H Urine Color (YEL,AMB,STR) YEL Urine Clarity (CLEAR) HAZY H Urine pH (5.0 - 8.0) 6.5 Ur Specific [place] (1.001 - 1.035) 1.025 Urine Protein (NEG,<30 MG/DL) TRACE H Urine Ketones (NEG) 40 H Urine Nitrite (NEG) NEG Urine Bilirubin (NEG) NEG Urine Urobilinogen (0.1 - 1.0 EU/dl) 0.2 Ur Leukocyte Esterase (NEG) NEG Ur Microscopic SEDIMENT EXAMINED Urine RBC (0 - 5 /HPF) RARE Urine WBC (0 - 2 /HPF) RARE Ur Epithelial Cells (NONE,FEW) FEW Urine Bacteria (NEG/NONE) FEW H Urine Mucus (FEW,NONE) FEW Urine Hemoglobin (NEG) NEG Urine Glucose (N MG/DL) NEG Assessment/Plan Assessment/Plan A: POD #1 s/p lap sima; AVSS Plan: D/C home. Core Measures/Miscellaneous Venous Thromboembolism VTE Risk Factors: Surgery VTE Contraindications: No Contraindications VTE Diagnosis: No VTE Type: NONE VTE Confirmed by (Test): NONE Beta Jaison Is Beta Jaison a Home Med? No Antibiotics Is Patient on Antibiotics? No
== END 2016-08-24 11:02 ==
LOC: ERH 07:01 → 2NA 09:39 → ERHI 09:39 → ENRESERV 10:35 → 2NA 11:29 → ENPENDDIS 08-24 09:32 → 2NA 08-24 11:02
PROVIDERS: Emergency Medicine; ADMIT Surgery
DX: K80.12 Calculus of gallbladder with acute and chronic cholecystitis without obstruction (principal)
CPT/HCPCS: 81001; 88304; 96361; 96372; 96374; 96375; 99291; J0131; J1644; J1885; J2405; J7042